=== PATIENT | female | born 1990 | race Caucasian/White ===

== ENCOUNTER 2018-03-17 18:15 | Emergency (ER) | payer MEDICAID ==
[~2018-03-17] VITALS: Ht 162.6 cm; Wt 79.0 kg
[~2018-03-17 18:15] MED LIST: CITA20TA6 PO; DIPH25CA61 PO; IBUP-1222 PO; OXYC-302 PO; PREN1TAB60 PO
[2018-03-17] MEDS ORDERED: CITA20TA9 PO (18:24)
[2018-03-17] MEDS ORDERED: PLEASE ENTER HEIGHT AND WEIGHT MC SCH (18:30)
[2018-03-17] MEDS ORDERED: SODIUM CHLORIDE FLUSH 10ML SYR IVF ONE (18:30)
[2018-03-17] MEDS ORDERED: SODIUM CHLORIDE 0.9% 1,000ML IVBOLUS ONE (18:30)
[2018-03-17 18:56] LABS: BASOPHILS # (AUTO) 0.04 x10^3/uL (0-0.1); BASOPHILS % (AUTO) 0 % (0-1); EOSINOPHILS # (AUTO) 0.12 x10^3/uL (0-0.4); EOSINOPHILS % (AUTO) 1 % (1-7); LYMPHOCYTES # (AUTO) 2.91 x10^3/uL (1-3.4); LYMPHOCYTES % (AUTO) 27 % (22-44); MD NO; MEAN CORPUSCULAR HEMOGLOBIN 28.5 pg (27.0-34.8); MEAN CORPUSCULAR HGB CONC 33.5 g/dL (32.4-35.8); MEAN CORPUSCULAR VOLUME 85.2 fL (80-100); MEAN PLATELET VOLUME 8.8 fL (7.4-10.4); MONOCYTES # (AUTO) 0.58 x10^3/uL (0.2-0.8); MONOCYTES % (AUTO) 5 % (2-9); NEUTROPHILS # (AUTO) 7.14 x10^3/uL (1.8-6.8); NEUTROPHILS % (AUTO) 66 % (42-75); PLATELET COUNT 286 x10^3/uL (130-400); RED BLOOD COUNT 4.58 x10^6/uL (3.82-5.3); RED CELL DISTRIBUTION WIDTH 13.8 % (9.6-15.2)
[2018-03-17 19:00] LABS: ALANINE AMINOTRANSFERASE 16 U/L (12-78); ALBUMIN 2.9 g/dL (3.4-5.0); ANION GAP 9 mmol/L (5-15); CALCIUM 8.9 mg/dL (8.5-10.1); CHLORIDE 104 mmol/L (98-107); CREATININE 0.66 mg/dL (0.55-1.02)
[2018-03-17 19:03] LABS: ALKALINE PHOSPHATASE 65 U/L (45-117); BILIRUBIN,TOTAL 0.2 mg/dL (0.2-1.0); TOTAL PROTEIN 7.3 g/dL (6.4-8.2)
[2018-03-17 19:39] VITALS: BP 110/64
== END 2018-03-17 19:41 | disposition home or self-care (01) ==
LOC: ED 19:05
DX: O26.892 Other specified pregnancy related conditions, second trimester (principal); R55 Syncope and collapse; O21.9 Vomiting of pregnancy, unspecified; H54.7 Unspecified visual loss; R19.7 Diarrhea, unspecified; R20.9 Unspecified disturbances of skin sensation; Z3A.21 21 weeks gestation of pregnancy
CPT/HCPCS: 36415; 80053; 85025; 93005; 99285; J7030

== ENCOUNTER 2018-05-30 14:40 | Outpatient (CLI) | payer MEDICAID ==
[~2018-05-30 14:40] MED LIST changes: +CITA20TA9 PO
[2018-05-30 15:19] LABS: MICROSCOPIC INDICATED
== END 2018-05-30 16:20 | disposition home or self-care (01) ==
LOC: LDOP 14:40
PROVIDERS: ATTEND Obstetrics & Gynecology
DX: O26.893 Other specified pregnancy related conditions, third trimester (principal); Z3A.32 32 weeks gestation of pregnancy; R10.9 Unspecified abdominal pain
CPT/HCPCS: 59025; 81001; 99211; G0463

== ENCOUNTER 2018-07-03 14:16 | Outpatient (CLI) | payer MEDICAID ==
[~2018-07-03] VITALS: Ht 162.6 cm; Wt 99.5 kg
[2018-07-03] MEDS ORDERED: LACTATED RINGERS 1,000 ML IVBOLUS ONE (15:00)
[2018-07-03] MEDS ORDERED: ONDANSETRON 2MG/ML, 2ML IVPush PRN (15:00)
[2018-07-03] MEDS ORDERED: PROMETHAZINE 25 MG/ML, 1ML IM PRN (15:00)
[2018-07-03 15:03] VITALS: BP 125/68
[2018-07-03 15:13] LABS: MICROSCOPIC INDICATED
[2018-07-03] MEDS ORDERED: PROMETHAZINE 25 MG/ML, 1ML ONE (15:25)
[2018-07-03] MEDS ORDERED: ACETAMINOPHEN 650 MG SUPP PR PRN (15:30)
[2018-07-03] MEDS ORDERED: PLEASE ENTER PATIENTS WEIGHT MC SCH (16:00)
[2018-07-03 16:11] LABS: CREATININE,URINE RANDOM 94.4 mg/dL
== END 2018-07-03 18:27 | disposition home or self-care (01) ==
LOC: LDOP 14:16
PROVIDERS: ATTEND Obstetrics & Gynecology
DX: O26.893 Other specified pregnancy related conditions, third trimester (principal); R51 Headache; R11.0 Nausea; Z3A.36 36 weeks gestation of pregnancy
CPT/HCPCS: 59025; 81001; 82570; 84156; 87086; 96372; 99211; J2550; G0463

== ENCOUNTER 2018-07-10 10:46 | Inpatient (IN) | payer MEDICAID ==
[~2018-07-10] VITALS: Ht 162.6 cm; Wt 110.0 kg
[2018-07-10] MEDS ORDERED: OXYTOCIN 30U/ 0.9% NaCL 500ML 500 ML IV PRN (11:08)
[2018-07-10] MEDS ORDERED: OXYTOCIN 30U/ 0.9% NaCL 500ML 500 ML IV ONE (11:08)
[2018-07-10] MEDS ORDERED: D5%-LACTATED RINGERS 1,000 ML IV SCH (11:08)
[2018-07-10 11:14] VITALS: BP 128/77
[2018-07-10] MEDS: LACTATED RINGERS 1,000 ML IV SCH ×4 (11:25→17:04)
[2018-07-10] MEDS ORDERED: FENTANYL PF 100 MCG/2ML IV PRN (11:30)
[2018-07-10] MEDS ORDERED: FENTANYL PF 100 MCG/2ML IVPush PRN (11:30)
[2018-07-10] MEDS ORDERED: ONDANSETRON 2MG/ML, 2ML IVPush PRN ×2 (11:30→17:30)
[2018-07-10] MEDS ORDERED: TERBUTALINE 1 MG/ML, 1ML SQ PRN (11:30)
[2018-07-10 11:35] LABS: BASOPHILS # (AUTO) 0.04 x10^3/uL (0-0.1); BASOPHILS % (AUTO) 0 % (0-1); EOSINOPHILS # (AUTO) 0.05 x10^3/uL (0-0.4); EOSINOPHILS % (AUTO) 1 % (1-7); LYMPHOCYTES # (AUTO) 2.68 x10^3/uL (1-3.4); LYMPHOCYTES % (AUTO) 29 % (22-44); MD NO; MEAN CORPUSCULAR HEMOGLOBIN 28.6 pg (27.0-34.8); MEAN CORPUSCULAR HGB CONC 33.4 g/dL (32.4-35.8); MEAN CORPUSCULAR VOLUME 85.7 fL (80-100); MONOCYTES # (AUTO) 0.58 x10^3/uL (0.2-0.8); MONOCYTES % (AUTO) 6 % (2-9); NEUTROPHILS # (AUTO) 5.93 x10^3/uL (1.8-6.8); NEUTROPHILS % (AUTO) 64 % (42-75); PLATELET COUNT 225 x10^3/uL (130-400); RED BLOOD COUNT 5.05 x10^6/uL (3.82-5.3); RED CELL DISTRIBUTION WIDTH 16.8 % (9.6-15.2)
[2018-07-10] MEDS ORDERED: NEWBORN KIT ONE (11:41)
[2018-07-10] MEDS ORDERED: OXYTOCIN 30U/ 0.9% NaCL 500ML 500 ML ONE ×2 (11:42→18:20)
[2018-07-10] MEDS ORDERED: MISOPROSTOL 200 MCG TABLET ONE (11:42)
[2018-07-10] MEDS ORDERED: LIDOCAINE/PF 1%, 30ML ONE (11:42)
[2018-07-10 11:47] LABS: ALBUMIN 2.8 g/dL (3.4-5.0); ANION GAP 9 mmol/L (5-15); CALCIUM 9.1 mg/dL (8.5-10.1); CHLORIDE 106 mmol/L (98-107)
[2018-07-10 11:49] LABS: ALANINE AMINOTRANSFERASE 34 U/L (12-78); ALKALINE PHOSPHATASE 133 U/L (45-117); BILIRUBIN, DIRECT < 0.1 mg/dL (0.1-0.2); BILIRUBIN,TOTAL 0.3 mg/dL (0.2-1.0); CREATININE 0.67 mg/dL (0.55-1.02); TOTAL PROTEIN 7.3 g/dL (6.4-8.2)
[2018-07-10 12:17] LABS: MICROSCOPIC AUTO
[2018-07-10 12:26] LABS: CREATININE,URINE RANDOM 78.7 mg/dL
[2018-07-10] MEDS ORDERED: FENTANYL PF 500 MCG, BUPIVACAINE/PF 0.5%, 30ML 62.5 ML in SODIUM CHLORIDE 0.9% 177.5 ML EPIDCONT SCH (13:19)
[2018-07-10] MEDS ORDERED: BUPIVACAINE 0.25% ONE (14:33)
[2018-07-10] MEDS ORDERED: FENTANYL PF 100 MCG/2ML ONE (14:33)
[2018-07-10] MEDS ORDERED: FENTANYL/BUPIV./NS/PF 250 ML EPIDCONT SCH (17:04)
[2018-07-10] MEDS ORDERED: LACTATED RINGERS 1,000 ML IVBOLUS PRN (17:30)
[2018-07-10] MEDS ORDERED: EPHEDRINE 50 MG/ML, 1ML IVPush PRN (17:30)
[2018-07-10] MEDS: OXYTOCIN 30U/ 0.9% NaCL 500ML 500 ML IV SCH ×6 (18:14→23:58)
[2018-07-10] MEDS ORDERED: CALCIUM CARBONATE 500 MG TAB.CHEW PO PRN (18:30)
[2018-07-10] MEDS ORDERED: HYDROcodone/APAP 5/325 TABLET PO PRN ×2 (18:30)
[2018-07-10] MEDS ORDERED: ACETAMINOPHEN 325 MG TABLET PO PRN ×2 (18:30)
[2018-07-10] MEDS ORDERED: MISOPROSTOL 200 MCG TABLET PR PRN (18:30)
[2018-07-10] MEDS ORDERED: ONDANSETRON 2MG/ML, 2ML IV PRN (18:30)
[2018-07-10] MEDS ORDERED: BISACODYL 10 MG SUPP PR PRN (18:30)
[2018-07-10 20:05] VITALS: BP 114/78
[2018-07-10 23:50] VITALS: BP 122/71
[2018-07-11] MEDS: LACTATED RINGERS 1,000 ML IV SCH ×2 (01:04→09:04)
[2018-07-11] MEDS: OXYTOCIN 30U/ 0.9% NaCL 500ML 500 ML IV SCH ×8 (01:24→13:20)
[2018-07-11] MEDS: IBUPROFEN 600 MG TABLET PO PRN ×3 (01:24→17:31)
[2018-07-11 01:43] LABS: BASOPHILS # (AUTO) 0.05 x10^3/uL (0-0.1); BASOPHILS % (AUTO) 1 % (0-1); EOSINOPHILS # (AUTO) 0.07 x10^3/uL (0-0.4); EOSINOPHILS % (AUTO) 1 % (1-7); LYMPHOCYTES % (AUTO) 24 % (22-44); MD NO; MEAN CORPUSCULAR HEMOGLOBIN 29.2 pg (27.0-34.8); MEAN CORPUSCULAR HGB CONC 34.1 g/dL (32.4-35.8); MEAN CORPUSCULAR VOLUME 85.8 fL (80-100); MEAN PLATELET VOLUME 9.1 fL (7.4-10.4); MONOCYTES # (AUTO) 0.69 x10^3/uL (0.2-0.8); MONOCYTES % (AUTO) 6 % (2-9); NEUTROPHILS # (AUTO) 7.94 x10^3/uL (1.8-6.8); NEUTROPHILS % (AUTO) 69 % (42-75); PLATELET COUNT 178 x10^3/uL (130-400); RED BLOOD COUNT 4.37 x10^6/uL (3.82-5.3); RED CELL DISTRIBUTION WIDTH 16.6 % (9.6-15.2)
[2018-07-11 03:40] VITALS: BP 112/72
[2018-07-11 07:50] VITALS: BP 110/71
[2018-07-11] MEDS: DOCUSATE 100 MG CAPSULE PO PRN ×2 (08:55→20:25)
[2018-07-11] MEDS: PRENATAL VIT/IRON/FA 1 EACH TABLET PO SCH (08:55)
[2018-07-11 12:10] VITALS: BP 108/70
[2018-07-11 17:00] VITALS: BP 113/78
[2018-07-11 20:00] VITALS: BP 108/71
[2018-07-11] MEDS ORDERED: CITALOPRAM 20 MG TABLET HOMEMEDPO SCH (21:00)
[2018-07-12 00:20] VITALS: BP 98/60
[2018-07-12 08:30] VITALS: BP 123/85
[2018-07-12] MEDS: PRENATAL VIT/IRON/FA 1 EACH TABLET PO SCH (08:45)
[2018-07-12] MEDS: DOCUSATE 100 MG CAPSULE PO PRN (08:45)
[2018-07-12] MEDS ORDERED: IBUP-1222 PO (11:01)
[2018-07-12] MEDS ORDERED: DOCU-131 PO (11:02)
== END 2018-07-12 13:00 | disposition home or self-care (01) | DRG 807 ==
LOC: UNDOADMIN 10:57 → LDIP 10:57 → 2NW 19:36
PROVIDERS: ADMIT Obstetrics & Gynecology; ATTEND Obstetrics & Gynecology
PROC: 10E0XZZ Delivery of Products of Conception, External Approach (ICD-10-PCS; principal; 2018-07-10)
PROC: 0HQ9XZZ Repair Perineum Skin, External Approach (ICD-10-PCS; 2018-07-10)
PROC: 10907ZC Drainage of Amniotic Fluid, Therapeutic from Products of Conception, Via Natural or Artificial Opening (ICD-10-PCS; 2018-07-10)
PROC: 3E033VJ Introduction of Other Hormone into Peripheral Vein, Percutaneous Approach (ICD-10-PCS; 2018-07-10)
PROC: 3E0R3BZ Introduction of Anesthetic Agent into Spinal Canal, Percutaneous Approach (ICD-10-PCS; 2018-07-10)
PROC: 00HU33Z Insertion of Infusion Device into Spinal Canal, Percutaneous Approach (ICD-10-PCS; 2018-07-10)
DX: O13.4 Gestational [pregnancy-induced] hypertension without significant proteinuria, complicating childbirth (principal); Z37.0 Single live birth; O69.81X0 Labor and delivery complicated by cord around neck, without compression, not applicable or unspecified; F32.9 Major depressive disorder, single episode, unspecified; O70.0 First degree perineal laceration during delivery; O77.0 Labor and delivery complicated by meconium in amniotic fluid; O99.344 Other mental disorders complicating childbirth; Z3A.37 37 weeks gestation of pregnancy; Z82.49 Family history of ischemic heart disease and other diseases of the circulatory system; Z83.3 Family history of diabetes mellitus; Z86.59 Personal history of other mental and behavioral disorders
CPT/HCPCS: 36415; 80053; 81001; 82248; 82570; 82803; 83615; 84156; 84550; 85025; 86850; 86900; G0378; J2590; J7120